=== PATIENT | male | born 1995 | race Asian ===

== ENCOUNTER 2018-10-11 09:12 | Emergency (ER) | payer MEDICAID, OTHER ==
[~2018-10-11] VITALS: Ht 170.2 cm; Wt 75.0 kg
[2018-10-11] MEDS ORDERED: LIDOCAINE 1% 10 ML VIAL INJ ONE (09:45)
[2018-10-11] MEDS ORDERED: PERTUSS(ACELL),DIPH,TET VAC/PF 0.5 ML VIAL IM ONE (10:00)
[2018-10-11 10:38] VITALS: BP 133/96
== END 2018-10-11 11:08 | disposition home or self-care (01) ==
LOC: EMS 09:14
DX: S51.812A Laceration without foreign body of left forearm, initial encounter (principal); F17.210 Nicotine dependence, cigarettes, uncomplicated; W25.XXXA Contact with sharp glass, initial encounter; Y93.89 Activity, other specified; Y92.89 Other specified places as the place of occurrence of the external cause; Y99.0 Civilian activity done for income or pay
CPT/HCPCS: 12002; 90471; 90715; 99283; J3490

== ENCOUNTER 2018-10-26 21:47 | Emergency (ER) | payer OTHER ==
[~2018-10-26] VITALS: Ht 177.8 cm; Wt 79.5 kg
[2018-10-26 23:55] VITALS: BP 132/85
== END 2018-10-27 00:08 | disposition home or self-care (01) ==
LOC: EMS 21:48
DX: S51.812D Laceration without foreign body of left forearm, subsequent encounter (principal); F17.210 Nicotine dependence, cigarettes, uncomplicated; X58.XXXD Exposure to other specified factors, subsequent encounter

== ENCOUNTER 2022-04-04 12:29 | Emergency (ER) | payer OTHER ==
[~2022-04-04] VITALS: Ht 175.3 cm; Wt 84.0 kg
[2022-04-04 12:38] VITALS: BP 128/102
[2022-04-04] MEDS: IBUPROFEN 800 MG TABLET PO ONE (16:01)
== END 2022-04-04 16:05 | disposition home or self-care (01) ==
LOC: EMS 12:32
DX: S60.221A Contusion of right hand, initial encounter (principal); F10.20 Alcohol dependence, uncomplicated; F17.210 Nicotine dependence, cigarettes, uncomplicated; W23.1XXA Caught, crushed, jammed, or pinched between stationary objects, initial encounter; Y93.89 Activity, other specified; Y92.89 Other specified places as the place of occurrence of the external cause; Y99.8 Other external cause status
CPT/HCPCS: 99283